=== PATIENT | male | born 1955 | race Caucasian/White ===

== ENCOUNTER → 2023-12-22 07:55 | Day surgery (SDC) | payer MEDICARE, BC, SELFPAY ==
[2023-12-22 10:49] LABS: Hematocrit 46.9 % (39.0-52.0); Hemoglobin 16.1 g/dL (13.0-18.0); Mean Corp Hgb Conc. 34.3 g/dL (33.0-37.0); Mean Corpuscular Hgb 32.3 pg (27.0-31.0); Platelet Count 256 10^3/uL (130-400); Red Blood Cell Count 4.99 10^6/uL (4.70-6.10); Red Cell Dist. Width 12.5 % (11.5-14.5); White Blood Cell Count 7.4 10^3/uL (4.8-10.8)
[2023-12-22 11:14] LABS: Blood Urea Nitrogen 16 mg/dl (9-20); Calcium 9.1 mg/dl (8.4-10.2); Carbon Dioxide 27 mmol/L (22-30); Chloride 102 mmol/L (98-107); Glucose 154 mg/dl (70-99); Potassium 4.7 mmol/L (3.5-5.1); Sodium 141 mmol/L (135-145); eGFR > 60.00
== END ==
LOC: SDSPAT 07:55
PROVIDERS: ATTENDING PHYSICIAN Surgery; FAMILY PHYSICIAN Family Medicine
DX: Z01.810 Encounter for preprocedural cardiovascular examination (principal); K42.9 Umbilical hernia without obstruction or gangrene; Z01.811 Encounter for preprocedural respiratory examination
CPT/HCPCS: 93005; 36415; 80048; 85027

== ENCOUNTER 2023-12-29 06:47 | Day surgery (SDC) | payer MEDICARE, BC, SELFPAY ==
[2023-12-22 08:33] VITALS: BMI 28.7
[2023-12-29] VITALS (10 sets, daily range): BP systolic 97–128; BP diastolic 63–74; BMI 28.7
[2023-12-29] MEDS: NORMOSOL-R/PLASMALYTE-A 1000 IV (11:08)
[2023-12-29 11:10] LABS: Glucose - Point of Care 143 mg/dl (70-99)
[2023-12-29] MEDS: TYLENOL 1000 MG PO (11:14)
--- NOTE | 2023-12-29 12:09 | HP.FOC2 ---
Focused History & Physical
Chief Complaint
HPI:
Chief Complaint: Umbilical hernia
HPI / Indication for Planned Procedure: Patient is a 68-year-old male recently seen in outpatient surgical evaluation secondary to a history of a umbilical and central abdominal wall swelling. Previous abdominal surgical history of having undergone
robotic prostatectomy and remote history of open right inguinal herniorrhaphy. Longstanding history of a small protrusion present in the region of his umbilicus. Swelling present upon standing always visible. Slightly increased in size slowly
over the years. No associated pain or discomfort.
Relevant Past Medical History: Other (DM, hypertension, hyperlipidemia, GERD, history of prostate cancer)
Relevant Social History: Negative
Relevant Family History: Negative
Relevant Past Surgical History: Positive for (RAL prostatectomy, open right inguinal herniorrhaphy)
Review of Systems
Review of Pertinent Systems: All Systems Negative
Medication
See Medication form for detailed medications: Yes
Medication List (including Herbals & OTC):
atorvastatin 20 mg tablet 20 mg PO DAILY 12/19/23
dulaglutide 1.5 mg/0.5 mL subcutaneous pen injector (Trulicity) 1.5 mg SC QWEEK 12/19/23
empagliflozin 10 mg tablet (Jardiance) 10 mg PO DAILY 12/19/23
glipizide 2.5 mg tablet, extended release 24 hr 2.5 mg PO HS 12/19/23
glipizide 2.5 mg tablet, extended release 24 hr 5 mg PO DAILY 12/19/23
lisinopril 10 mg tablet 10 mg PO DAILY 12/19/23
metformin 1,000 mg tablet 1,000 mg PO BID 12/19/23
Medications Reviewed: Yes
Allergies and Reactions
Patient has Allergies: No
Noted Allergies and Reactions:
Allergy/AdvReac Type Severity Reaction Status Date / Time
No Known Allergies Allergy Verified 12/29/23 10:52
Pertinent Physical Exam
All Other Systems: Negative
Head/Neck: Normal
Lungs: Normal
Heart: Normal
Abdomen: Normal and Other (Reducible umbilical hernia, 2 cm fascial defect. Supraumbilical surgical scar without incisional hernia. Diastasis recti)
Extremities: Normal
Neurological: Normal
Diagnosis / Assessment
68-year-old male presenting for scheduled operative correction umbilical hernia
Plan / Procedure
Robotic assisted laparoscopic repair umbilical hernia with mesh
Anesthesia/Sedation to be done by Anesthesia Provider: Yes
--- NOTE | 2023-12-29 12:12 | W.SUR.PREOP ---
Pre-Operative Surgical Note
-
I have examined this patient prior to the performance of the scheduled procedure.
The patient's condition is unchanged from the time of the current History and
Physical and the patient is able to undergo the scheduled procedure.
[2023-12-29 12:26] LABS: Glucose - Point of Care 133 mg/dl (70-99)
--- NOTE | 2023-12-29 14:08 | W.IMMPOSTOP ---
Surgical Immed Post Op Note
-
Primary Surgeon: Jake Allen MD
Assisting Surgeon: Rosa Dodson PA-C
Pre-op Diagnosis: Umbilical hernia
Post-op Diagnosis: Umbilical hernia, 2.5 cm
Procedure Performed: RAL MARKUS repair umbilical hernia with mesh; Bard soft 12 x 10 cm
Anesthesia Type: GETA +0.25% Marcaine with epi
Specimen / Cultures: None/none
Estimated Blood Loss: 6 mL
Complications: None immediate
Operative Findings: Reducible umbilical hernia, fascial defect 2.5 cm x 1 cm. Hernia defect closed with 0 PDS strata fix. Transabdominal preperitoneal repair with flap started on left lateral abdominal wall. Bard soft mesh 12 cm vertically by 10
cm wide secured with interrupted 2-0 Vicryl. Peritoneal flap closed with 2-0 Monocryl STRATAFIX spiral. No additional incidental findings.
The assistance of Rosa Dodson PA-C was required due to the complexity of the procedure. During the procedure Rosa Dodson PA-C assisted with port placement, robotic instrumentation and suture material exchanges, and closure of the surgical incision
sites. I was present for the entirety of the operative procedure.
Patient's updated postoperatively via phone call
[2023-12-29 14:29] LABS: Glucose - Point of Care 179 mg/dl (70-99)
--- NOTE | 2023-12-30 07:18 | OR.RPT ---
Operative Report
Operative Report
Date of operative procedure: 12/29/2023
Primary Surgeon: Jake Allen MD
Director Of Assessment: Rosa Dodson PA-C
Pre-op Diagnosis: Umbilical hernia
Post-op Diagnosis: Umbilical hernia, 2.5 cm
Procedure Performed: Robotic assisted laparoscopic MARKUS repair umbilical hernia with mesh; Bard soft 12 cm x 10 cm
Anesthesia: GETA +0.25% Marcaine
Specimen / Cultures: None/none
Estimated Blood Loss: 6 mL
Complications: None immediate
Indications for Operative Procedure: Patient is a 68-year-old male recently seen in outpatient surgical evaluation secondary to a history of umbilical and central abdominal wall swelling. Previous abdominal surgical history of having undergone
robotic prostatectomy and remote history of open right inguinal herniorrhaphy. Longstanding history of a small protrusion present in the region of his umbilicus. Focal swelling present upon standing always visible. Slightly increased in size
slowly over the years. No associated pain or discomfort. I reviewed with the patient treatment options. He wished to pursue operative correction. We discussed various operative approaches to repair and elected to proceed with a robotic assisted
laparoscopic umbilical herniorrhaphy with mesh. Anticipated operative procedures fully reviewed in detail with the patient preoperatively obtaining written informed consent. See office visit consultation for full details regarding discussions.
Brief Summary of Operative Findings: Reducible umbilical hernia, fascial defect 2.5 cm x 1 cm. Hernia defect closed with running continuous 0 PDS STRATAFIX suture. Transabdominal preperitoneal repair with flap started on left lateral abdominal
wall. Underlay bard soft mesh, 12 cm vertically by 10 cm wide secured with interrupted 2-0 Vicryl. Peritoneal flap closed with 2-0 Monocryl STRATAFIX spiral. No additional incidental findings on cursory inspection of the abdomen.
Operation in Detail: The patient was identified in the preoperative holding area. I confirmed the umbilical surgical site/location with the patient preoperatively. They were interviewed by the anesthesia and nursing staff then brought back to the
operating room. The patient was placed on the operating table in supine position. The bilateral upper extremities were carefully padded and tucked at the side utilizing the arm guard positioning system. Pneumatic compression boots were on the
bilateral lower extremities. Following induction of general endotracheal anesthesia the patient was administered Ancef 2 g IV for prophylactic antibiotic coverage. The patient's anterior abdominal wall was now widely and sterilely prepped with
DuraPrep and then draped in the usual manner. The surgical time out was completed and the procedure was confirmed.
I initially proceeded with Veress needle insufflation at the left subcostal midclavicular line location. Once insufflated to 12 mmHg pressure then an 8 mm trocar was placed along the left lateral abdominal wall snf between the left costal
margin and the left ASIS and a palms breath out from the anticipated left lateral boarder of the mesh placement. The robotic scope was now inserted. There was no evidence of iatrogenic injury from access. The Veress needle was withdrawn. A left
subcostal lateral 8 mm trocar and a left lower quadrant 8 mm trocar just superior/medial to the ASIS were now placed under direct visualization. The patient was then transition into slight Trendelenburg and right side down to aid in exposure of the
anterior abdominal wall. The robot was then docked.
At the surgeon console inspection confirmed the presence of a reducible umbilical hernia containing preperitoneal fat. There were no additional incidental intra-abdominal findings.
I initially began with the creation of a peritoneal flap along the left lateral abdominal wall. The flap was begun by incising the peritoneum along the left lateral aspect of the central abdominal wall fat pad cranially about 5cm superior to the
fascial defect. The peritoneal incision was now carried down further laterally into the left lower quadrant in an arc like manner with preservation of the posterior sheath. The preperitoneal plane was now established along the length of the flap
and developed towards the midline where the central abdominal wall fat pad was taken down with the peritoneum superiorly and inferiorly to the fascial defect. The hernia sac and contents were now completely reduced with care to preserve the dermis
of the umbilical stalk and its subcutaneous blood supply. The peritoneal flap along the entire length was now mobilized well onto the right lateral side of the abdominal wall to allow for mesh placement with good circumferential coverage.
The umbilical fascial defect was now measured to be 2.5 cm vertically by 1 cm in width. Fascial edges were confirmed to be cleared. No additional hernias in the area were noted. Defect was then closed with a running continuous 0 PDS STRATAFIX
along the vertical orientation. The suture was then run back upon itself in a reverse direction for a double layer closure and to lock the barbed suture in place. A Bard soft mesh measuring 12 cm vertically by 10 cm in width was then introduced
through the 8mm trochar. The mesh was positioned within the peritoneal flap in an underlay fashion and centered over the fascial defect to get 5 cm of coverage in all directions from the closure. The mesh was then secured centrally to the linea
alba at 3 separate locations with interrupted 2-0 Vicryl suture. The mesh was also secured at the right and left lateral borders with 2 additional interrupted 2-0 Vicryl sutures to the posterior sheath. Hemostasis was now assured. The left
lateral margin of the peritoneal flap was closed with a running continuous 2-0 Monocryl STRATAFIX suture run in a [place] stitch fashion. The air was aspirated out of the flap with a flexible suction catheter confirming complete occlusion of the
flap. The peritoneal covering of the mesh was completely intact as well.
At this point the robot was undocked. All sponge, instrument and needle counts were confirmed to be correct x 2. The CO2 insufflation was now fully evacuated out of the abdominal cavity. The trocar sites were removed as well as the flexible
suction catheter. Skin was closed with 4-0 Monocryl. Sterile surgical glue dressings were applied. The patient tolerated the procedure well and was transferred to the recovery unit for routine postoperative monitoring.
The assistance of Rosa Dodson PA-C was required due to the complexity of surgery. During the procedure Rosa Dodson PA-C assisted with port placement, robotic instrument and suture material exchanges as well as closure of the surgical sites. I
was present for the entirety of the operative procedure.
== END 2023-12-29 16:17 | disposition home or self-care (01) ==
LOC: SDS 06:47
PROVIDERS: ATTENDING PHYSICIAN Surgery; FAMILY PHYSICIAN Family Medicine
DX: K42.9 Umbilical hernia without obstruction or gangrene (principal)
CPT/HCPCS: 49593; 82962; C1781

== ENCOUNTER → 2024-10-26 10:19 | Outpatient (REF) | payer MEDICARE, BC, SELFPAY | LOC: RCS 10:19 | PROVIDERS: ATTENDING PHYSICIAN Orthopaedic Surgery Hand Surgery; FAMILY PHYSICIAN Family Medicine | DX: Z01.818 Encounter for other preprocedural examination (principal) | CPT/HCPCS: 93005 ==